=== PATIENT | female | born 1965 | race Caucasian/White ===

== ENCOUNTER 2017-12-29 05:31 | Emergency (ER) | payer BC ==
[2017-12-29] MEDS ORDERED: IPRATROPIUM BROM 0.5MG/2.5ML ONE (05:49)
[2017-12-29] MEDS ORDERED: ALBUTEROL 2.5 MG/3 ML NEB SOL ONE (05:49)
--- NOTE | 2017-12-29 06:49 | ER ---
Nurse's Notes [facility] Name: Danae Diaz Age: 52 yrs Sex: Female : 1965 Arrival Date: 12/29/2017 Time: 05:32 Bed 6 Private MD: Avni Thomas E Diagnosis: Foreign body in bronchus Presentation: 12/29 05:38 Presenting complaint: Patient states: she thinks she inhaled a crown which has been bb loose for a while she was sleeping, she is having difficulty taking a deep breath and feels like she is wheezing, pt is able to talk in complete sentences. Transition of care: patient was not received from another setting of care. Onset of symptoms was December 29, 2017. Initial Sepsis Screen: Does the patient meet any 2 criteria? No. Patient's initial sepsis screen is negative. Does the patient have a suspected source of infection? No. Patient's initial sepsis screen is negative. Care prior to arrival: None. 05:38 Method Of Arrival: Ambulatory bb 05:38 Acuity: ISAAC 4 bb YIELD ANALYST: 05:40 LMP 12/18/2017 bb Historical: - Allergies: 05:40 Compazine; bb - Home Meds: 05:40 None [Active]; bb - PMHx: 05:40 None; bb - PSHx: 05:40 Hernia repair; bb - Immunization history:: Adult Immunizations up to date. - Social history:: Smoking status: Patient/guardian denies using tobacco, Patient/guardian denies using alcohol, street drugs. Screenin:42 Abuse screen: Denies threats or abuse. Nutritional screening: No deficits noted. jd3 Tuberculosis screening: No symptoms or risk factors identified. Fall Risk None identified. Assessment: 05:39 General: Appears in no apparent distress. Behavior is calm, cooperative. Pain: Denies mg2 pain. Neuro: Level of Consciousness is awake, alert, obeys commands, Oriented to person, place, time. Cardiovascular: Capillary refill < 3 seconds Patient's skin is warm and dry. Cardiovascular:. Respiratory: Reports shortness of breath Airway is patent Respiratory effort is even, unlabored, Respiratory pattern is regular, symmetrical. GI: No signs and/or symptoms were reported involving the gastrointestinal system. : No signs and/or symptoms were reported regarding the genitourinary system. EENT: Reports she may have swallowed a crown from her tooth. Derm: Skin is intact, Skin is pink, warm \T\ dry. normal. Musculoskeletal: No signs and/or symptoms reported regarding the musculoskeletal system. 05:39 Respiratory: Airway is patent Respiratory effort is even, unlabored, Respiratory jd3 pattern is regular, symmetrical, Breath sounds are clear bilaterally. Breath sounds with wheezes in mediastinum. 06:20 Reassessment: Patient appears in no apparent distress at this time. Patient and/or jd3 family updated on plan of care and expected duration. Pain level reassessed. Patient is alert, oriented x 3, equal unlabored respirations, skin warm/dry/pink. provider at bedside discussing plan of care. 07:05 Reassessment: Patient denies pain at this time. Respiratory: Airway is patent jl7 Respiratory effort is even, unlabored, Respiratory pattern is regular, symmetrical, Breath sounds are clear bilaterally. 07:15 Reassessment: Report given to JEAN-PIERRE Nation at [facility]. jl7 07:43 Reassessment: [facility] here to transport pt. jl7 Vital Signs: 05:40 BP 126 / 76; Pulse 103; Resp 18 S; Temp 97.8(O); Pulse Ox 96% on R/A; Weight 90.72 kg bb (R); Height 5 ft. 4 in. (162.56 cm) (R); Pain 0/10; 06:20 BP 130 / 81; Pulse 84; Resp 18 S; Pulse Ox 95% on R/A; Pain 0/10; jd3 07:05 BP 124 / 74; Pulse 77; Resp 18; Pulse Ox 96% ; jl7 07:45 BP 125 / 60; Pulse 75; Resp 18; Pulse Ox 97% ; Pain 0/10; jl7 05:40 Body Mass Index 34.33 (90.72 kg, 162.56 cm) bb ED Course: 05:32 Patient arrived in ED. am2 05:32 Avni Thomas MD is Private Physician. am2 05:33 Lazaro Barajas MD is Attending Physician. gs 05:38 Asad Trent, JEAN-PIERRE is Primary Nurse. mg2 05:40 Triage completed. bb 05:40 Arm band placed on Patient placed in an exam room, on a stretcher, on pulse oximetry. bb Family accompanied patient. 05:42 Patient has correct armband on for positive identification. Bed in low position. Warm mg2 blanket given. 06:34 XRAY Chest Pa And Lat (2 Views) In Process Unspecified. EDMS 06:34 Neck Soft Tissue XRAY In Process Unspecified. EDMS 06:56 Attending Physician role handed off by Lazaro Barajas MD kdr 06:56 Easton Troy MD is Attending Physician. kdr 07:46 No provider procedures requiring assistance completed. Patient did not have IV access jl7 during this emergency room visit. Administered Medications: 05:50 Drug: Albuterol 2.5 mg Route: Inhalation; mg2 05:50 Drug: AtroVENT Aerosol 0.5 mg Route: Inhalation; mg2 Outcome: 06:49 ER care complete, transfer ordered by MD. 07:46 Transferred by ground EMS to [facility], Transfer form completed. X-rays sent jl7 w/ patient. 07:46 Condition: stable 07:46 Discharge instructions given to patient, family, Instructed on the need for transfer, Demonstrated understanding of instructions. 07:47 Patient left the ED. jl7 Signatures: Dispatcher [employer] EDMS Easton Troy MD MD kdr Violet Nieto RN RN bb Gal Nguyễn RN RN jl7 Liliane Mares am2 Lazaro Barajas MD MD gs Eric Briggs RN RN jAsad Farah, JEAN-PIERRE RN mg2 Corrections: (The following items were deleted from the chart) 05:43 05:39 Respiratory: Airway is patent Respiratory effort is even, unlabored, Respiratory mg2 pattern is regular, symmetrical, mg2
--- NOTE | 2017-12-29 06:50 | EDPHYS ---
Physician Documentation [facility] Name: Danae Diaz Age: 52 yrs Sex: Female : 1965 Arrival Date: 12/29/2017 Time: 05:32 Bed 6 Private MD: Avni Thomas E ED Physician Easton Troy HPI: 12/29 06:36 This 52 yrs old Female presents to ER via Ambulatory with complaints of gs Swallowed Foreign Body, Breathing Difficulty, Wheezing > 1 Year. 06:36 Onset: The symptoms/episode began/occurred acutely, just prior to arrival. Duration: gs The symptoms are continuous. The patient's shortness of breath has no apparent modifying factors. Associated signs and symptoms: Pertinent negatives: chest pain. Severity of symptoms: At their worst the symptoms were moderate in the emergency department the symptoms are unchanged. The patient has not experienced similar symptoms in the past. aspirated crown while asleep. DIRECTOR INFORMATION: 05:40 LMP 12/18/2017 bb Historical: - Allergies: 05:40 Compazine; bb - Home Meds: 05:40 None [Active]; bb - PMHx: 05:40 None; bb - PSHx: 05:40 Hernia repair; bb - Immunization history:: Adult Immunizations up to date. - Social history:: Smoking status: Patient/guardian denies using tobacco, Patient/guardian denies using alcohol, street drugs. ROS: 06:36 All other systems are negative. gs 12:01 Constitutional: Negative for fever, chills, and weight loss. kdr Exam: 06:36 Head/Face: Normocephalic, atraumatic. Eyes: Pupils equal round and reactive to light, gs extra-ocular motions intact. Lids and lashes normal. Conjunctiva and sclera are non-icteric and not injected. Cornea within normal limits. Periorbital areas with no swelling, redness, or edema. ENT: Nares patent. No nasal discharge, no septal abnormalities noted. Tympanic membranes are normal and external auditory canals are clear. Oropharynx with no redness, swelling, or masses, exudates, or evidence of obstruction, uvula midline. Mucous membranes moist. Neck: Trachea midline, no thyromegaly or masses palpated, and no cervical lymphadenopathy. Supple, full range of motion without nuchal rigidity, or vertebral point tenderness. No Meningismus. Chest/axilla: Normal chest wall appearance and motion. Nontender with no deformity. No lesions are appreciated. Cardiovascular: Regular rate and rhythm with a normal S1 and S2. No gallops, murmurs, or rubs. Normal PMI, no JVD. No pulse deficits. Abdomen/GI: Soft, non-tender, with normal bowel sounds. No distension or tympany. No guarding or rebound. No evidence of tenderness throughout. Back: No spinal tenderness. No costovertebral tenderness. Full range of motion. Skin: Warm, dry with normal turgor. Normal color with no rashes, no lesions, and no evidence of cellulitis. MS/ Extremity: Pulses equal, no cyanosis. Neurovascular intact. Full, normal range of motion. Neuro: Awake and alert, GCS 15, oriented to person, place, time, and situation. Cranial nerves II-XII grossly intact. Motor strength 5/5 in all extremities. Sensory grossly intact. Cerebellar exam normal. Normal gait. 06:36 Constitutional: The patient appears alert, awake. 06:36 Respiratory: the patient does not display signs of respiratory distress, Respirations: normal, Breath sounds: decreased breath sounds, that are mild, are heard in the left posterior lower lobe, stridor, that is mild. Vital Signs: 05:40 BP 126 / 76; Pulse 103; Resp 18 S; Temp 97.8(O); Pulse Ox 96% on R/A; Weight 90.72 kg bb (R); Height 5 ft. 4 in. (162.56 cm) (R); Pain 0/10; 06:20 BP 130 / 81; Pulse 84; Resp 18 S; Pulse Ox 95% on R/A; Pain 0/10; jd3 07:05 BP 124 / 74; Pulse 77; Resp 18; Pulse Ox 96% ; jl7 07:45 BP 125 / 60; Pulse 75; Resp 18; Pulse Ox 97% ; Pain 0/10; jl7 05:40 Body Mass Index 34.33 (90.72 kg, 162.56 cm) bb MDM: 05:40 Patient medically screened. 06:36 Differential diagnosis: asthma, Pneumothorax fb aspiration. Data reviewed: vital signs, gs nurses notes. 07:05 Counseling: I had a detailed discussion with the patient and/or guardian regarding: the kdr historical points, exam findings, and any diagnostic results supporting the discharge/admit diagnosis, radiology results, the need to transfer to another facility. 12/29 05:41 Order name: XRAY Chest Pa And Lat (2 Views); Complete Time: 07:02 12/29 05:41 Order name: Neck Soft Tissue XRAY; Complete Time: 07:02 Administered Medications: 05:50 Drug: Albuterol 2.5 mg Route: Inhalation; mg2 05:50 Drug: AtroVENT Aerosol 0.5 mg Route: Inhalation; mg2 Disposition: 12/29/17 06:49 Transfer ordered to [facility]. Diagnosis is Foreign body in bronchus. - Reason for transfer: Higher level of care. - Accepting physician is Dr. Sauer (pulmonology). - Condition is Stable. - Problem is new. - Symptoms are unchanged. Signatures: Dispatcher [employer] EDMS Easton Troy MD MD kdr Violet Nieto RN RN bb Gal Nguyễn RN RN jl7 Lazaro Barajas MD MD Asad Trent RN RN mg2 Corrections: (The following items were deleted from the chart) 07:08 06:49 12/29/2017 06:49 Transfer ordered to Other Acute Care Facility. Diagnosis is kdr Foreign body in bronchus. Reason for transfer: Higher level of care. Accepting physician is tbd. Condition is Stable. Problem is new. Symptoms are unchanged. 07:47 07:08 12/29/2017 06:49 Transfer ordered to [facility]. jl7 Diagnosis is Foreign body in bronchus. Reason for transfer: Higher level of care. Accepting physician is Dr. Sauer (pulmonology). Condition is Stable. Problem is new. Symptoms are unchanged. kdr
--- NOTE | 2017-12-29 06:52 | RAD REPORT ---
EXAM DESCRIPTION: RAD - Neck Soft Tissue - 12/29/2017 6:33 am CLINICAL HISTORY: Possible foreign body ingestion COMPARISON: None. TECHNIQUE: Frontal and lateral views of the neck were obtained. FINDINGS: No radiopaque foreign body identifiable in the neck and upper most chest. No significant bone or soft tissue finding seen.
--- NOTE | 2017-12-29 06:53 | RAD REPORT ---
EXAM DESCRIPTION: RAD - Chest Pa And Lat (2 Views) - 12/29/2017 6:33 am CLINICAL HISTORY: Foreign body ingestion COMPARISON: None. TECHNIQUE: PA and lateral views of the chest were obtained. FINDINGS: The lungs are slightly underinflated. The ingested foreign body is identified on the chest film. Foreign body is superimposed on the left hilum indicating positioning in the left mainstem br onchus. No air trapping. No focal infiltrate or pleural fluid. Trachea is midline. IMPRESSION: Inhaled foreign body is in the left mainstem bronchus.
== END 2017-12-29 07:47 | disposition short-term general hospital (02) ==
LOC: ER 05:31
DX: T17.598A Other foreign object in bronchus causing other injury, initial encounter (principal); X58.XXXA Exposure to other specified factors, initial encounter; Y93.9 Activity, unspecified
CPT/HCPCS: 70360; 71046; 99285